=== PATIENT | male | born 1980 | race Caucasian/White ===

== ENCOUNTER → 2016-07-21 | Outpatient (CLI) | payer BC ==
[~2016-07-21] MED LIST: ALBU1AER9 INH; ALL180 PO; IBUP-1459 PO; METR0.754 TOP; PRLSR20 PO
--- NOTE | 2016-07-21 10:44 | DIAGNOSTIC IMAGING REPORT ---
(BARIUM SWALLOW) ESOPHAGUS CLINICAL HISTORY: Odynophagia, neck Pain, difficulty SWALLOWINGdysphagia COMPARISON STUDY: None FLUOROSCOPY TIME: 1.2 minutes. FINDINGS: Patient initiates swallowing function well. There is no evidence for aspiration. Esophageal motility is unremarkable. There is a small hiatal hernia. There is mild gastroesophageal reflux. Patient ingested the barium tablet well with no evidence for obstruction IMPRESSION: Small hiatal hernia with mild gastroesophageal reflux. Otherwise negative study Electronically signed by: Zhang Alfaro M.D. 07/21/2016 10:43 AM Dictated Date/Time: 07/21/2016 10:42 AM
== END | disposition home or self-care (01) ==
LOC: C.RAD 10:10
PROVIDERS: ATTEND Nurse Practitioner
DX: M54.2 Cervicalgia (principal); R13.10 Dysphagia, unspecified